=== PATIENT | male | born 1950 | race Caucasian/White ===

== ENCOUNTER 2016-10-15 07:11 | Emergency (ER) | payer MEDICARE, MEDICAID ==
[2016-10-15 07:15] VITALS: BP 175/94
[2016-10-15] MEDS ORDERED: Cyclobenzaprine TAB* 10 MG PO ONE (08:46)
[2016-10-15] MEDS ORDERED: Ketorolac INJ* 60 MG/2 ML VIAL IM ONE (08:46)
--- NOTE | 2016-10-15 09:08 | ED ---
Back Pain - HPI Summary HPI Summary: Patient presents with one day of acute on chronic back pain. He has a history of a bulging disk and yesterday he did something to "tweak" it. He can find a position of comfort when laying down but any movement from sitting to standing is excruciatingly painful, but once he is up and walking he feels better. He denies incontinence of urine and stool, no N/T, or difficulty ambulating. - History of Current Complaint Chief Complaint: EDBackInjuryPain Stated Complaint: LOWER BACK PAIN Time Seen by Provider: 10/15/16 08:33 Hx Obtained From: Patient Onset/Duration: Gradual Onset Onset/Duration: Started Days Ago - 1 Timing: Constant Back Pain Location: Is Discrete @ - low back Severity Initially: Moderate Severity Currently: Mild Pain Intensity: 2 Character: Sharp, Aching Aggravating Symptom(s): Movement Alleviating Symptom(s): Rest Associated Signs And Symptoms: Positive: Negative Related History: Previous Back Injury - Allergies/Home Medications Allergies/Adverse Reactions: Allergies Allergy/AdvReac Type Severity Reaction Status Date / Time No Known Allergies Allergy Verified 06/13/12 09:58 PMH/Surg Hx/FS Hx/Imm Hx Endocrine/Hematology History: Denies: Hx Diabetes Cardiovascular History: Denies: Hx Angina, Hx Coronary Artery Disease, Hx Hypercholesterolemia, Hx Hypertension, Hx Myocardial Infarction, Hx Pacemaker/ICD, Hx Valvular Heart Disease Respiratory History: Reports: Other Respiratory Problems/Disorders - sinus infection a coupe days a year, recent upper resp infection Denies: Hx Asthma, Hx Chronic Obstructive Pulmonary Disease (COPD) GI History: Reports: Other GI Disorders - needs his bowel meds in the am and suleman to stay regular otherwise diarrhea Musculoskeletal History: Reports: Hx Back Problems, Other Musculoskeletal History - degenerative disk, torn right bicep a couple months ago Sensory History: Reports: Hx Contacts or Glasses Denies: Hx Hearing Aid Opthamlomology History: Reports: Hx Contacts or Glasses Psychiatric History: Reports: Hx Depression, Hx Bipolar Disorder - dx in high school Denies: Hx Panic Disorder Infectious Disease History: No Infectious Disease History: Denies: Traveled Outside the [place] in Last 30 Days - Family History Known Family History: Positive: None - Social History Occupation: Unemployed Lives: With Family Alcohol Use: Occasionally Substance Use Type: Reports: None Smoking Status (MU): Never Smoked Tobacco Review of Systems Positive: Myalgia Negative: Weakness, Paresthesia, Numbness All Other Systems Reviewed And Are Negative: Yes Physical Exam Triage Information Reviewed: Yes Vital Signs On Initial Exam: Initial Vitals Temp Pulse Resp BP Pulse Ox 97.4 F 99 20 175/94 98 10/15/16 07:13 10/15/16 07:13 10/15/16 07:13 10/15/16 07:13 10/15/16 07:13 Vital Signs Reviewed: Yes Appearance: Positive: Well-Appearing, No Pain Distress, Well-Nourished Skin: Positive: Warm, Skin Color Reflects Adequate Perfusion, Dry, Soft Head/Face: Positive: Normal Head/Face Inspection Eyes: Positive: EOMI, SETH, Conjunctiva Clear ENT: Positive: Hearing grossly normal Neck: Positive: Supple, Nontender Respiratory/Lung Sounds: Positive: Breath Sounds Present Cardiovascular: Positive: RRR Musculoskeletal: Positive: Strength/ROM Intact, Pain @ - +bilateral SLR; TTP bilateral lumbar spine Neurological: Positive: Sensory/Motor Intact, Alert, Oriented to Person Place, Time, NV Bundle Intact Distally, Abnormal Gait Psychiatric: Positive: Affect/Mood Appropriate AVPU Assessment: Alert Diagnostics - Vital Signs Vital Signs Temp Pulse Resp BP Pulse Ox 10/15/16 07:15 97.4 F 94 20 175/94 98 10/15/16 07:13 97.4 F 99 20 175/94 98 - Laboratory Lab Statement: Any lab studies that have been ordered have been reviewed, and results considered in the medical decision making process. Back Pain Course/Dx - Diagnoses Differential Diagnosis/HQI/PQRI: Positive: Aneurysm, Arthritis, Cauda Equina Syndrome, Epidural Abscess, Herniated Disc, Strain, Sprain Provider Diagnoses: Acute exacerbation of chronic low back pain Discharge - Discharge Plan Condition: Stable Disposition: HOME Patient Education Materials: Back Pain (ED) Referrals: Stephane Solorio MD [Primary Care Provider] - Additional Instructions: Please use the muscle relaxer as needed. Begin using ibuprofen 600mg three times daily with meals tomorrow morning for the next 3-5 days to help decrease inflammation and pain. Follow-up with your primary care provider if your symptoms persist. Return to the emergency department if symptoms worsen.
== END 2016-10-15 09:22 | disposition home or self-care (01) ==
LOC: ED 07:11
DX: M54.5 Low back pain (principal); G89.29 Other chronic pain; M79.1 Myalgia
CPT/HCPCS: 96372; 99281; A9270-GY; J1885

== ENCOUNTER 2016-12-16 09:42 | Day surgery (SDC) | payer MEDICARE, MEDICAID ==
[~2016-12-16 09:42] MED LIST: Buffered Lidocaine 0.9% SYRIN* 5 ML/SYR SYRINGE INTRADERM ONE
[2016-12-16] MEDS ORDERED: ceFAZolin 2 GM PREMIX (*) 50 ML IVPB ONE (10:25)
[2016-12-16] MEDS ORDERED: Lidocaine 1.5% EPI 1:200,000* 30 ML SDV ONE (11:55)
[2016-12-16] MEDS ORDERED: Mineral Oil Sterile, TOPICAL* 25 ML BTL ONE (11:56)
[2016-12-16] MEDS ORDERED: fentaNYL* 50 MCG/ML 2 ML VIAL (100 MCG VIAL) ONE (12:10)
[2016-12-16] MEDS ORDERED: Midazolam* 1 MG/ML 5 ML VIAL (5 MG) ONE (12:10)
[2016-12-16 14:03] VITALS: BP 146/85
== END 2016-12-16 14:29 | disposition home or self-care (01) ==
LOC: OREAST 09:42
PROVIDERS: ATTEND Plastic Surgery
DX: C44.311 Basal cell carcinoma of skin of nose (principal); I10 Essential (primary) hypertension; F41.8 Other specified anxiety disorders; E78.00 Pure hypercholesterolemia, unspecified
CPT/HCPCS: A9270-GY; J0690; J2250; J3010

== ENCOUNTER → 2017-11-16 14:29 | Emergency (ER) | payer MEDICARE, MEDICAID ==
[2017-11-16 16:18] VITALS: BP 156/82
== END | disposition left against medical advice (07) ==
LOC: ED 14:29
DX: R10.9 Unspecified abdominal pain (principal); Z53.21 Procedure and treatment not carried out due to patient leaving prior to being seen by health care provider

== ENCOUNTER 2017-11-17 13:31 | Emergency (ER) | payer MEDICARE, MEDICAID ==
--- NOTE | 2017-11-17 15:05 | ED ---
Abdominal Pain/Male - HPI Summary HPI Summary: This is manav Herrera documenting for attending Dr. Dann M.D. Pt is a 66 y/o M w/ c/o uncomfortable feeling/abdominal pain onsetting six days ago. He notes pain was initially at the periumbilical area but reports it is currently at RLQ. On triage, pain is rated 4/10. Nothing is noted to aggravate/alleviate pain. He denies having tried to use OTC meds on triage. Discomfort is described as constant. He reports no bowel movement in the past two days and has been taking fiber supplements. Pt denies fever and chills but notes some nausea. - History of Current Complaint Chief Complaint: EDAbdPain Stated Complaint: ABD PAIN Time Seen by Provider: 11/17/17 14:43 Hx Obtained From: Patient Onset/Duration: Lasting Days - 6 days ago Timing: Constant Severity Currently: Mild Pain Intensity: 4 Pain Scale Used: 0-10 Numeric - 4/10 Location: Discrete At: RLQ - currently, Umbilical - at onset pain was at umbilical region Aggravating Factor(s): Nothing Alleviating Factor(s): Nothing Associated Signs And Symptoms: Positive: Nausea, Other - NEGATIVE: chills POSITIVE: constipation. Negative: Fever - Allergies/Home Medications Allergies/Adverse Reactions: Allergies Allergy/AdvReac Type Severity Reaction Status Date / Time No Known Allergies Allergy Verified 12/16/16 10:19 Home Medications: Home Medications Atorvastatin* [Lipitor 10 MG*] 10 mg PO DAILY 11/17/17 [History Confirmed ] Levothyroxine TAB* [Synthroid TAB*] 25 mcg PO DAILY 11/17/17 [History Confirmed 11/17/17] Venlafaxine EXT RELEASE CAP* [Effexor Xr CAP*] 112.5 mg PO DAILY 11/17/17 [ History Confirmed 11/17/17] buPROPion SR TAB* [Wellbutrin SR TAB*] 150 mg PO BID 11/17/17 [History Confirmed 11/17/17] lamoTRIgine TAB(*) [LaMICtal TAB(*)] 100 mg PO DAILY 11/17/17 [History Confirmed 11/17/17] PMH/Surg Hx/FS Hx/Imm Hx Endocrine/Hematology History: Reports: Hx Thyroid Disease - ON MEDICATION FOR Denies: Hx Diabetes Cardiovascular History: Denies: Hx Angina, Hx Coronary Artery Disease, Hx Hypercholesterolemia, Hx Hypertension, Hx Myocardial Infarction, Hx Pacemaker/ICD, Hx Valvular Heart Disease Respiratory History: Reports: Other Respiratory Problems/Disorders - sinus infection a coupe days a year, recent upper resp infection Denies: Hx Asthma, Hx Chronic Obstructive Pulmonary Disease (COPD) GI History: Reports: Other GI Disorders - GAS AND BLOATING - STATES DIET RELATED Musculoskeletal History: Reports: Hx Arthritis, Hx Back Problems, Other Musculoskeletal History - degenerative disk, torn right bicep Sensory History: Reports: Hx Cataracts, Hx Contacts or Glasses - READING GLASSES Denies: Hx Hearing Aid Opthamlomology History: Reports: Hx Cataracts, Hx Contacts or Glasses - READING GLASSES Psychiatric History: Reports: Hx Anxiety - ON MEDICATION FOR, Hx Depression - ON MEDICATION FOR, Hx Bipolar Disorder - dx in high school Denies: Hx Panic Disorder - Surgical History Surgery Procedure, Year, and Place: DENTAL SURGERY-WHILE IN HIS 20'S Hx Anesthesia Reactions: No Infectious Disease History: No Infectious Disease History: Denies: Traveled Outside the [place] in Last 30 Days - Family History Known Family History: Negative: Blood Disorder - Social History Alcohol Use: Occasionally Substance Use Type: Reports: None Smoking Status (MU): Never Smoked Tobacco Review of Systems Negative: Fever, Chills Positive: Abdominal Pain - at onset located at periumbilical region, in room noted at RLQ , Nausea, Other - no bowel movement in two days; constipation All Other Systems Reviewed And Are Negative: Yes Physical Exam - Summary Physical Exam Summary: GENERAL: Patient is a well developed and nourished male who is lying comfortable in the stretcher. Patient is not in any acute respiratory distress. HEAD AND FACE: Normocephalic EYES: PERRLA, EOMI x 2. EARS: Hearing grossly intact. MOUTH: Oropharynx within normal limits. NECK: Supple, trachea is midline, no adenopathy, no JVD, no carotid bruit. CHEST: Symmetric, no tenderness at palpation LUNGS: Clear to auscultation bilaterally. No wheezing or crackles. CVS: Regular rate and rhythm, S1 and S2 present, no murmurs or gallops appreciated. ABDOMEN: Soft. Tenderness in RLQ. Bowel sounds are normal. No abdominal abnormal pulsations. EXTREMITIES: Full ROM in all major joints, no edema, no cyanosis or clubbing. NEURO: Alert and oriented x 3. No acute neurological deficits. Speech is normal and follows commands. SKIN: Dry and warm Triage Information Reviewed: Yes Vital Signs On Initial Exam: Initial Vitals Temp Pulse Resp BP Pulse Ox 97.8 F 94 16 146/96 98 11/17/17 13:35 11/17/17 13:35 11/17/17 13:35 11/17/17 13:35 11/17/17 13:35 Vital Signs Reviewed: Yes Diagnostics - Vital Signs Vital Signs Temp Pulse Resp BP Pulse Ox 11/17/17 13:35 97.8 F 94 16 146/96 98 - Laboratory Result Diagrams: 11/17/17 16:09 11/17/17 16:09 Lab Statement: Any lab studies that have been ordered have been reviewed, and results considered in the medical decision making process. - CT abd/pel CT Interpretation: Positive (See Comments) CT Interpretation Completed By: Radiologist - #. No pathologic process of the alimentary tract evident. #. Symmetrically delayed nephrograms and pyelograms. Physiologic distention of the IVC without suggestion of low volume state. Correlate with renal function. #. 2.5 mm distal RIGHT ureteral stone without resulting hydronephrosis. Additional 4 mm stone at the RIGHT posterior aspect of the urinary bladder. #. Lumbar sacral spine degenerative spondylosis and facet joint osteoarthritis with resulting acquired central canal stenosis. This report was reviewed by ED physician. Abdominal Pain Fem Course/Dx - Course Assessment/Plan: Pt is a 66 y/o M w/ c/o uncomfortable feeling/abdominal pain onsetting six days ago. He notes pain was initially at the periumbilical area but reports it is currently at RLQ. On triage, pain is rated 4/10. Nothing is noted to aggravate/alleviate pain. He denies having tried to use OTC meds on triage. Discomfort is described as constant. He reports no bowel movement in the past two days and has been taking fiber supplements. Pt denies fever and chills but notes some nausea. Physical exam revealed RLQ tenderness. CT abd/pel was ordered with impressions above. Pt was diagnosed with kidney stones and discharge to home with instructions to follow up with urology in the next few days. - Diagnoses Provider Diagnoses: Kidney stones Discharge - Sign-Out/Discharge Documenting (check all that apply): Patient Departure - discharge - Discharge Plan Condition: Stable Disposition: HOME Prescriptions: Tamsulosin HCl [Flomax] 0.4 mg PO ONCE #30 cap.er.24h traMADol TAB* [Ultram*] 50 mg PO Q12H #15 tab MDD 2 Patient Education Materials: Kidney Stones (ED) Referrals: Stephane Solorio MD [Primary Care Provider] - 2 Days Additional Instructions: Follow up with [facility] in next couple of days. Return to ED for any new or worsening symptoms. - Billing Disposition and Condition Condition: STABLE Disposition: Home
[2017-11-17] MEDS ORDERED: Ketorolac INJ* 30 MG/ML 1 ML VIAL IV PUSH ONE (15:16)
[2017-11-17] MEDS ORDERED: Ondansetron INJ* 2 MG/ML VIAL IV ONE (15:17)
[2017-11-17 16:26] LABS: ABS Basophils 0.1 10^3/ul (0-0.2); ABS Eosinophils 0.2 10^3/ul (0-0.6); ABS Lymphocytes 1.3 10^3/ul (1.0-4.8); ABS Monocytes 0.6 10^3/ul (0-0.8); ABS Neutrophils 4.8 10^3/ul (1.5-7.7); ABS Nucleated RBC 0 10^3/ul; Eosinophil % 3.1 % (0-6); Hematocrit 43 % (42-52); Hemoglobin 14.4 g/dl (14.0-18.0); Lymphocyte % 17.9 % (25-47); Mean Corpuscular HGB Conc 34 g/dl (31-36); Mean Corpuscular Hemoglobin 30 pg (27-31); Mean Corpuscular Volume 89 fL (80-94); Mean Platelet Volume 7.5 um3 (7.4-10.4); Nucleated Red Blood Cells % 0.1; Platelet Count 246 10^3/ul (150-450); Red Cell Distribution Width 14 % (10.5-15)
[2017-11-17 16:40] LABS: EGFR Non-African American 55.6 (>60)
[2017-11-17] MEDS ORDERED: Iodixanol* (CONTRAST) 320 MG/ML 100 ML SDV IV ONE (16:53)
--- NOTE | 2017-11-17 17:21 | RAD ---
INDICATION: LEFT lower abdominal pain and discomfort for several weeks. No bowel movement for 6 days. COMPARISON: No relevant prior exams available on the [facility] PACS for comparison. TECHNIQUE: Multidetector CT images were obtained from the lung bases to the ischial tuberosities with 102 mL Visipaque 320 IV and oral contrast. Multiplanar reformation. REPORT: Minimal dependent atelectasis at the lung bases. Unremarkable liver, gallbladder, pancreas, spleen. Negative for CT abnormality of the upper GI, small bowel, or appendix. Moderate volume of stool present throughout the colon. Negative for significant distention of the rectum with stool. Moderate distention of the mid to distal sigmoid colon with stool. Negative for perienteric inflammatory change, ascites, hernias. Unremarkable adrenal glands. Symmetrically delayed nephrograms and pyelograms. 2.5 mm stone at the distal RIGHT ureter approximate 2 cm from the ureterovesicular junction without associated hydronephrosis. 4 mm dependent stone at the RIGHT margin of the urinary bladder. Unremarkable seminal vesicles and prostate. Negative for lymphadenopathy. Normal diameter abdominal aorta with minimal atherosclerotic plaque. Physiologic distention of the IVC. Multilevel degenerative spondylosis and facet joint osteoarthritis. Resulting acquired central canal stenosis most prominent at L4-L5 where it is severe. Negative for suspicious focal osseous lesions. IMPRESSION: #. No pathologic process of the alimentary tract evident. #. Symmetrically delayed nephrograms and pyelograms. Physiologic distention of the IVC without suggestion of low volume state. Correlate with renal function. #. 2.5 mm distal RIGHT ureteral stone without resulting hydronephrosis. Additional 4 mm stone at the RIGHT posterior aspect of the urinary bladder. #. Lumbar sacral spine degenerative spondylosis and facet joint osteoarthritis with resulting acquired central canal stenosis.
[2017-11-17 19:08] LABS: Urine Appearance Clear; Urine Blood 1+ (Negative); Urine Color Yellow; Urine Ketones 1+ (Negative); Urine Protein 1+(30 mg/dL) (Negative); Urine Red Blood Cell 1+(3-5/hpf) (Absent); Urine Specific Gravity > 1.060 (1.010-1.030); Urine Urobilinogen Positive (Negative); Urine White Blood Cell 1+(6-10/hpf) (Absent)
[2017-11-17 20:08] VITALS: BP 137/74
== END 2017-11-17 19:55 | disposition home or self-care (01) ==
LOC: ED 13:31
DX: N20.1 Calculus of ureter (principal); N21.0 Calculus in bladder; M47.817 Spondylosis without myelopathy or radiculopathy, lumbosacral region; E07.9 Disorder of thyroid, unspecified; F41.8 Other specified anxiety disorders; Z79.899 Other long term (current) drug therapy
CPT/HCPCS: 36415; 74177; 80053; 81003; 81015; 83605; 83690; 85025; 86140; 86703; 86706; 86803; 87086; 96374; 96375; 99283; J1885; J2405; Q9967

== ENCOUNTER 2017-12-07 09:10 | Day surgery (SDC) | payer MEDICARE, MEDICAID ==
--- NOTE | 2017-12-06 10:56 | HP ---
CC: Dr. Stephane Solorio * DATE OF ADMISSION: 12/07/2017. AGE: 66-year-old male. ADMITTING DIAGNOSES: 1. Calculi right ureter. 2. Right hydronephrosis. 3. Bladder calculus. PLANNED PROCEDURE: Cystoscopy, right ureteroscopy, possible laser and stent insertion, and removal of bladder calculus. SURGEON: Dr. Alvarado. HISTORY OF PRESENT ILLNESS: Levi Lopez is a 66-year-old gentleman who has originally been evaluated in the emergency room and subsequently in my office. An ultrasound in my office had revealed right hydronephrosis with what appeared to be multiple stones in the right distal ureter and an additional bladder calculus. He was given the option of trying to continue conservative management , but since it has been a while (had been in the emergency room in mid October) he would like to continue on with the procedure. PAST MEDICAL HISTORY: Significant for: 1. Depression. 2. Hypothyroidism. 3. High cholesterol. 4. History of superficial melanoma. PAST SURGICAL HISTORY: Significant for oral surgery. MEDICATIONS ON ADMISSION: 1. Dicyclomine 10 mg daily. 2. Lipitor 10 mg daily. 3. Bupropion 150 mg daily. 4. Lorazepam 0.5 mg prn daily. 5. Venlafaxine 75 mg daily. 6. Levothyroxine 25 mcg daily. 7. 50 mg prn. 8. Lamotrigine 100 mg daily. 9. 50 mg prn. 10. Cyclobenzaprine 5 mg daily. 11. Tramadol 50 mg prn. 12. Flomax 0.4 mg daily. 13. Meclizine 125 mg daily. ALLERGIES AND INTOLERANCES: No known drug allergies. FAMILY HISTORY: His sister has kidney stones. SMOKING HISTORY: He is a nonsmoker. REVIEW OF SYSTEMS: He denies any chest pain or shortness of breath. There is no history of diabetes mellitus or any other major systemic illness. PHYSICAL EXAMINATION GENERAL: Pleasant, middle-aged gentleman. VITAL SIGNS: Blood pressure 140/88, pulse 88 per minute and regular, temperature 96, oxygen saturation 98 percent on room air. CARDIOVASCULAR: Regular rate and rhythm. S1, S2. LUNGS: Clear bilaterally. ABDOMEN: Soft with mild right flank tenderness. IMPRESSION: [id number]-old gentleman with multiple right distal ureteral calculi and a bladder calculus. PLANNED PROCEDURE: Cystoscopy, right ureteroscopy, possible laser and stent insertion, and removal of bladder calculus. [id number]/[facility] #: [id number] [facility]
[~2017-12-07 09:10] MED LIST changes: +Gentamicin ADULT (*) 160 MG in NS 0.9% 100 ML* 100 ML IVPB ONE
[2017-12-07] MEDS ORDERED: cefTRIAXone(*) 2 GM ADDV.VIAL IVPB ONE (09:33)
[2017-12-07] MEDS ORDERED: Iohexol 180 (CONTRAST) 10 ML SDV IV ONE (10:39)
[2017-12-07] MEDS ORDERED: Chloroprocaine 2%* 20 ML VIAL ONE (10:46)
[2017-12-07] MEDS ORDERED: Midazolam* 1 MG/ML 2 ML VIAL (2 MG) ONE (10:46)
[2017-12-07] MEDS ORDERED: fentaNYL* 50 MCG/ML 2 ML VIAL (100 MCG VIAL) ONE (10:46)
[2017-12-07] MEDS ORDERED: Propofol* 10 MG/ML 20 ML BTL IV PUSH ONE (11:09)
[2017-12-07] MEDS ORDERED: Naloxone* 0.4 MG/ML 1 ML VIAL IV PRN (11:51)
[2017-12-07] MEDS ORDERED: Ketorolac INJ* 30 MG/ML 1 ML VIAL IV PRN (11:51)
[2017-12-07] MEDS ORDERED: fentaNYL* 50 MCG/ML 2 ML VIAL (100 MCG VIAL) IV PRN (11:51)
[2017-12-07] MEDS ORDERED: Acetaminophen TAB* 325 MG PO PRN (11:51)
[2017-12-07] MEDS ORDERED: Ketorolac INJ* 30 MG/ML 1 ML VIAL ONE (12:52)
--- NOTE | 2017-12-07 13:17 | RAD ---
INDICATION: Right ureteroscopy with laser lithotripsy COMPARISON: None FINDINGS: 4 seconds of fluoroscopy were provided for the urology of department. Fluoroscopic spot imaging of the abdomen were obtained for operative control and show right-sided ureteroscopy followed by a right ureteral stent placement in expected position . CPT II Codes: G9500 (fluoro time doc)
[2017-12-07 14:19] VITALS: BP 143/82
--- NOTE | 2017-12-07 23:25 | OP ---
CC: Dr. Solorio * DATE OF OPERATION: 12/07/17 - [facility] DATE OF : 54 SURGEON: Sixto Alvarado MD ANESTHESIOLOGIST: Dr. Santos. ANESTHESIA: Spinal. PRE-OP DIAGNOSES: 1. Right ureteral calculi. 2. Bladder calculi. POST-OP DIAGNOSES: 1. Right ureteral calculi. 2. Bladder calculi. 3. Bladder lesion. 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 OPERATIVE PROCEDURE: 1. Cystoscopy, right retrograde pyelogram, right ureteroscopy, laser lithotripsy, and right stent insertion. 2. Transurethral resection and fulguration of bladder lesion. 3. Fragmentation and removal of bladder calculi. COMPLICATIONS: None. POSTOPERATIVE CONDITION: Stable. STENT USED: 6-Filipino stent right ureter. INDICATIONS: Levi Lopez is a 66-year-old gentleman who was evaluated for right ureteral and bladder calculi. DESCRIPTION OF PROCEDURE: After induction of spinal anesthesia, the patient was placed in dorsal lithotomy position. Sequential compression devices were in place and functioning. Initial cystoscopy revealed a normal-appearing urethra and a mildly enlarged prostate. The bladder was examined. There were multiple bladder calculi which were all fairly small and these were easily fragmented and irrigated out. In the mucosa of the bladder above the right orifice there was an approximately 1.5 cm lesion with an appearance consistent with superficial low-grade transitional cell neoplasm. Using the biopsy forceps , this was excised and then the resectoscope was introduced to resect the base of the lesion. Next attention was directed to the right ureter. Retrograde pyelogram revealed fullness of the right collecting system and a 6-Filipino semirigid ureteroscope was introduced and advanced into the ureter. The distal most part of the ureter was fairly narrow and above this there were two calculi noted. Using a 550 micron holmium laser these were successfully broken up into multiple fragments and all of the sizable fragments were removed. A 6-Filipino stent was introduced and positioned under fluoroscopy with good proximal and distal positioning obtained. The patient tolerated the procedure satisfactorily and was transferred back to the recovery area in stable condition. [id number]/[facility] #: [id number] [facility]
== END 2017-12-07 15:01 | disposition home or self-care (01) ==
LOC: OR 09:10
PROVIDERS: ATTEND Urology
DX: N13.2 Hydronephrosis with renal and ureteral calculous obstruction (principal); N32.9 Bladder disorder, unspecified; N21.0 Calculus in bladder; E03.9 Hypothyroidism, unspecified; E78.00 Pure hypercholesterolemia, unspecified; Z85.820 Personal history of malignant melanoma of skin
CPT/HCPCS: 36415; 74420; 82365; 86803; 88300; 88305; C1876; J0696; J1580; J1885; J2250; J2400; J2704; J3010

== ENCOUNTER 2018-10-23 12:57 | Day surgery (SDC) | payer MEDICARE, MEDICAID ==
[~2018-10-23 12:57] MED LIST changes: +Acetaminophen TAB* 325 MG PO PRN; -Buffered Lidocaine 0.9% SYRIN* 5 ML/SYR SYRINGE INTRADERM ONE; +Cyclopentolate 1% OPTH.SOL* 2 ML BTL ONE; -Gentamicin ADULT (*) 160 MG in NS 0.9% 100 ML* 100 ML IVPB ONE; +Ketorolac 0.5% OPHTH (NF) 0.5 % 5 ML BTL ONE; +Lidocaine 1%** 5 ML VIAL ONE; +Neomycin/Polymy/Dex OPHTH.OIN* 3.5 GM ONE; +Phenylephrine OPHTH SOL 2.5%* 2 ML ONE; +Povidone Iodine 5% OPTH* 30 ML BTL ONE; +Tetracaine 0.5% OPTH.SOL 4 ML* 1 DROP BTL ONE; +Tropicamide 1% OPTH.SOL* BTL ONE; +acetaZOLAMIDE TAB* 250 MG ONE
[2018-10-23] MEDS ORDERED: Midazolam* 1 MG/ML 2 ML VIAL (2 MG) ONE (14:08)
[2018-10-23] MEDS ORDERED: fentaNYL* 50 MCG/ML 2 ML VIAL (100 MCG VIAL) ONE (14:08)
[2018-10-23] MEDS ORDERED: Glycopyrrolate IV* 0.2 MG/ML 1 ML VIAL ONE (14:14)
[2018-10-23 15:25] VITALS: BP 135/68
--- NOTE | 2018-10-23 21:28 | OP ---
DATE OF OPERATION: 10/23/18 - [facility] DATE OF : 54 SURGEON: Shravan Cantu MD ANESTHESIA: Monitored anesthesia care. PREOPERATIVE DIAGNOSIS: Cataract, left eye. POSTOPERATIVE DIAGNOSIS: Cataract, left eye. OPERATIVE PROCEDURE: Extracapsular cataract extraction of the left eye with intraocular lens implant. IMPLANT: SN60WF 19.0 diopter lens to the left eye. COMPLICATIONS: None. DESCRIPTION OF PROCEDURE: The patient was given phenylephrine 2.5 % and cyclopentolate 1% eye drops to the operative eye in the preoperative area. The patient was taken to the operating room where a time-out was taken to identify the correct patient, site, and side of surgery. The patient's left eye was prepped and draped in the usual sterile fashion with 5% Betadine. A second time- out was taken to verify the correct patient, side, and site of surgery, as well as the correct lens implant. A lid speculum was placed to the left eye. A 1mm paracentesis blade was used to make a clear corneal incision. Preservative-free 1% lidocaine was injected into the anterior chamber. DisCoVisc was then injected into the anterior chamber. A 2.75 mm keratome blade was used to make a triplanar incision. A cystotome initiated a capsulorrhexis, which was completed with Utrata forceps in a continuous and curvilinear manner. Hydrodissection of the lens was performed with BSS on a cannula. The lens could be spun in a capsular bag. The phacoemulsification handpiece was used with a divide-and- conquer technique to remove the nucleus. The I/A handpiece then removed the residual cortical lens material. DisCoVisc was injected to inflate the capsular bag. The planned SN60WF 19.0 Diopter lens was injected into the capsular bag. The residual DisCoVisc was removed from the eye with the I/A handpiece. The corneal incisions were hydrated and no leaks occurred at physiologic pressure around 20 mmHg per palpation. The lid speculum was removed and drapes were removed. Maxitrol ointment was placed to the surface of the operative eye. An adhesive patch and shield was then placed on the operative eye. The patient was taken to the postoperative area in stable condition. [id number]/[facility] #: [id number] [facility]
== END 2018-10-23 16:06 | disposition home or self-care (01) ==
LOC: OREAST 12:57
PROVIDERS: ATTEND Student in an Organized Health Care Education/Training Program
DX: H25.812 Combined forms of age-related cataract, left eye (principal); E78.00 Pure hypercholesterolemia, unspecified; E05.90 Thyrotoxicosis, unspecified without thyrotoxic crisis or storm; F41.8 Other specified anxiety disorders; E78.5 Hyperlipidemia, unspecified
CPT/HCPCS: A9270-GY; J2250; J3010; V2632

== ENCOUNTER 2018-10-30 07:04 | Day surgery (SDC) | payer MEDICARE, MEDICAID ==
[~2018-10-30 07:04] MED LIST changes: -Cyclopentolate 1% OPTH.SOL* 2 ML BTL ONE; -Ketorolac 0.5% OPHTH (NF) 0.5 % 5 ML BTL ONE; -Lidocaine 1%** 5 ML VIAL ONE; -Neomycin/Polymy/Dex OPHTH.OIN* 3.5 GM ONE; -Phenylephrine OPHTH SOL 2.5%* 2 ML ONE; -Povidone Iodine 5% OPTH* 30 ML BTL ONE; -Tetracaine 0.5% OPTH.SOL 4 ML* 1 DROP BTL ONE; -Tropicamide 1% OPTH.SOL* BTL ONE; -acetaZOLAMIDE TAB* 250 MG ONE
[2018-10-30] MEDS ORDERED: fentaNYL* 50 MCG/ML 2 ML VIAL (100 MCG VIAL) ONE (07:15)
[2018-10-30] MEDS ORDERED: Midazolam* 1 MG/ML 5 ML VIAL (5 MG) ONE (07:15)
[2018-10-30 08:42] VITALS: BP 138/82
--- NOTE | 2018-10-30 09:07 | OP ---
DATE OF OPERATION: 10/30/18 - [facility] DATE OF : 54 SURGEON: Shravan Cantu MD ANESTHESIA: Monitored anesthesia care. PREOPERATIVE DIAGNOSIS: Cataract, right eye. POSTOPERATIVE DIAGNOSIS: Cataract, right eye. OPERATIVE PROCEDURE: Extracapsular cataract extraction of the right eye with intraocular lens implant. IMPLANT: SN60WF 20.0 diopter lens to the right eye. COMPLICATIONS: None. DESCRIPTION OF PROCEDURE: The patient was given phenylephrine 2.5 % and cyclopentolate 1% eye drops to the operative eye in the preoperative area. The patient was taken to the operating room where a time-out was taken to identify the correct patient, site, and side of surgery. The patient's right eye was prepped and draped in the usual sterile fashion with 5% Betadine. A second time- out was taken to verify the correct patient, side, and site of surgery, as well as the correct lens implant. A lid speculum was placed to the right eye. A 1mm paracentesis blade was used to make a clear corneal incision. Preservative-free 1% lidocaine was injected into the anterior chamber. DisCoVisc was then injected into the anterior chamber. A 2.75 mm keratome blade was used to make a triplanar incision. A cystotome initiated a capsulorrhexis, which was completed with Utrata forceps in a continuous and curvilinear manner. Hydrodissection of the lens was performed with BSS on a cannula. The lens could be spun in a capsular bag. The phacoemulsification handpiece was used with a divide-and- conquer technique to remove the nucleus. The I/A handpiece then removed the residual cortical lens material. DisCoVisc was injected to inflate the capsular bag. The planned SN60WF 20.0 diopter lens was injected into the capsular bag. The residual DisCoVisc was removed from the eye with the I/A handpiece. The corneal incisions were hydrated and no leaks occurred at physiologic pressure around 20 mmHg per palpation. The lid speculum was removed and drapes were removed. Maxitrol ointment was placed to the surface of the operative eye. An adhesive patch and shield was then placed on the operative eye. The patient was taken to the postoperative area in stable condition. [id number]/[facility] #: [id number] [facility]
[2018-10-30] MEDS ORDERED: Cyclopentolate 1% OPTH.SOL* 2 ML BTL ONE (13:25)
[2018-10-30] MEDS ORDERED: Ketorolac 0.5% OPHTH (NF) 0.5 % 5 ML BTL ONE (13:25)
[2018-10-30] MEDS ORDERED: Neomycin/Polymy/Dex OPHTH.OIN* 3.5 GM ONE (13:25)
[2018-10-30] MEDS ORDERED: acetaZOLAMIDE TAB* 250 MG ONE (13:25)
[2018-10-30] MEDS ORDERED: Phenylephrine OPHTH SOL 2.5%* 2 ML ONE (13:25)
[2018-10-30] MEDS ORDERED: Lidocaine 1% MPF ** 5 ML VIAL ONE (13:25)
[2018-10-30] MEDS ORDERED: Tetracaine 0.5% OPTH.SOL 4 ML* 1 DROP BTL ONE (13:25)
[2018-10-30] MEDS ORDERED: Povidone Iodine 5% OPTH* 30 ML BTL ONE (13:25)
[2018-10-30] MEDS ORDERED: Tropicamide 1% OPTH.SOL* BTL ONE (13:25)
== END 2018-10-30 09:43 | disposition home or self-care (01) ==
LOC: OREAST 07:04
PROVIDERS: ATTEND Student in an Organized Health Care Education/Training Program
DX: H25.811 Combined forms of age-related cataract, right eye (principal); E78.00 Pure hypercholesterolemia, unspecified; F41.8 Other specified anxiety disorders; E03.9 Hypothyroidism, unspecified
CPT/HCPCS: A9270-GY; J2250; J3010; V2632

== ENCOUNTER 2019-02-21 12:04 | Emergency (ER) | payer MEDICARE, MEDICAID ==
[2019-02-21 12:30] LABS: ABS Basophils 0.1 10^3/ul (0-0.2); ABS Eosinophils 0.2 10^3/ul (0-0.6); ABS Lymphocytes 1.4 10^3/ul (1.0-4.8); ABS Monocytes 0.5 10^3/ul (0-0.8); ABS Neutrophils 4.4 10^3/ul (1.5-7.7); Hematocrit 45 % (42-52); Hemoglobin 15.3 g/dL (14.0-18.0); Lymphocyte % 21.6 %; Mean Corpuscular HGB Conc 34 g/dL (31-36); Mean Corpuscular Hemoglobin 30 pg (27-31); Mean Corpuscular Volume 89 fL (80-94); Mean Platelet Volume 7.4 fL (7.4-10.4); Nucleated Red Blood Cells % 0.1; Platelet Count 271 10^3/uL (150-450); Red Blood Count 5.09 10^6 /uL (4.18-5.48); Red Cell Distribution Width 14 % (10-15); White Blood Count 6.7 10^3/uL (3.5-10.8)
[2019-02-21 12:37] LABS: INR 0.99 (0.82-1.09)
[2019-02-21 12:53] LABS: Albumin 4.4 g/dL (3.2-5.2); Albumin/Globulin Ratio 1.7 (1-3); BUN/Creatinine Ratio 9.8 (8-20); Calcium 9.6 mg/dL (8.6-10.3); EGFR African American 79.4 (>60); EGFR Non-African American 65.6 (>60); Globulin 2.6 g/dL (2-4); Potassium 4.4 mmol/L (3.5-5.0); Total Bilirubin 0.4 mg/dL (0.2-1.0)
[2019-02-21 16:14] VITALS: BP 155/96
--- NOTE | 2019-02-23 06:38 | ED ---
HPI Chest Pain - HPI Summary HPI Summary: This patient is a 68-year-old otherwise healthy male presenting to the ED with left-sided rib pain radiating to the chest. States has been present x 1 month and has remained intermittent. Worse with palpation, however denies any other current modifying factors. Denies any shortness of breath. Denies any pain to the back or to the neck. Denies any abdominal pain, nausea, vomiting, diarrhea , constipation, urinary symptoms. Denies any weakness. Patient has no cardiac history. He admits he has this tenderness to the L ribs every now and then, less than once a year, but this is the longest it has lasted. He states he is here to make sure his heart is not involved. Takes no medications, no anticoagulation. - History of Current Complaint Chief Complaint: EDChestPainROMI Time Seen by Provider: 02/21/19 13:52 Hx Obtained From: Patient Onset/Duration: Started Hours Ago Timing: Constant Initial Severity: Moderate Current Severity: Moderate Pain Intensity: 0 Pain Scale Used: 0-10 Numeric Chest Pain Radiates: No Aggravating Factor(s): Movement Alleviating Factor(s): Nothing Associated Signs and Symptoms: Positive: Negative - Allergy/Home Medications Allergies/Adverse Reactions: Allergies Allergy/AdvReac Type Severity Reaction Status Date / Time No Known Allergies Allergy Verified 02/21/19 13:51 PMH/Surg Hx/FS Hx/Imm Hx Previously Healthy: Yes Endocrine/Hematology History: Reports: Hx Thyroid Disease - ON MEDICATION FOR Denies: Hx Diabetes Cardiovascular History: Reports: Other Cardiovascular Problems/Disorders - cholesterol Denies: Hx Angina, Hx Coronary Artery Disease, Hx Hypercholesterolemia, Hx Hypertension, Hx Myocardial Infarction, Hx Pacemaker/ICD, Hx Valvular Heart Disease Respiratory History: Reports: Other Respiratory Problems/Disorders - occasional sinus infection a couple days a year depending on weather Denies: Hx Asthma, Hx Chronic Obstructive Pulmonary Disease (COPD) GI History: Reports: Other GI Disorders - OCCASSIONAL GAS AND BLOATING History: Reports: Hx Kidney Stones, Other Problems/Disorders - RIGHT URETERAL CALCULUS BLADDER CALCULUS Denies: Hx Renal Disease Musculoskeletal History: Reports: Hx Arthritis - BILATERAL fingers, Hx Back Problems, Other Musculoskeletal History - degenerative disk, torn right bicep healed, hx of gout- none recently Sensory History: Reports: Hx Cataracts - bilateral, Hx Contacts or Glasses - READING GLASSES Denies: Hx Hearing Aid Opthamlomology History: Reports: Hx Cataracts - bilateral, Hx Contacts or Glasses - READING GLASSES Neurological History: Reports: Other Neuro Impairments/Disorders - DIZZINESS OCCASIONAL IF STAND TOO QUICKLY Psychiatric History: Reports: Hx Anxiety - ON MEDICATION FOR, Hx Depression - ON MEDICATION FOR, Hx Bipolar Disorder - dx in high school Denies: Hx Panic Disorder - Cancer History Hx Chemotherapy: No - Surgical History Surgery Procedure, Year, and Place: DENTAL SURGERY-WHILE IN HIS 20'S. 2017 [facility] REMOVED X 2, OFFICE AND [place] Hx Anesthesia Reactions: No - Immunization History Hx Pertussis Vaccination: No Immunizations Up to Date: Yes Infectious Disease History: No Infectious Disease History: Denies: Traveled Outside the [place] in Last 30 Days - Family History Known Family History: Positive: None Negative: Blood Disorder - Social History Occupation: Unemployed Lives: Alone Alcohol Use: Occasionally Hx Substance Use: No Substance Use Type: Reports: None Smoking Status (MU): Never Smoked Tobacco Review of Systems Negative: Fever, Chills, Fatigue, Skin Diaphoresis Negative: Palpitations, Chest Pain Negative: Shortness Of Breath, Cough Genitourinary: Negative Positive: no symptoms reported, see HPI Musculoskeletal: Negative Skin: Negative All Other Systems Reviewed And Are Negative: Yes Physical Exam Triage Information Reviewed: Yes Vital Signs On Initial Exam: Initial Vitals Temp Pulse Resp BP Pulse Ox 97.5 F 89 16 152/85 99 02/21/19 12:15 02/21/19 12:15 02/21/19 12:15 02/21/19 12:15 02/21/19 12:15 Vital Signs Reviewed: Yes Appearance: Positive: Well-Appearing, Well-Nourished Skin: Positive: Warm, Skin Color Reflects Adequate Perfusion Head/Face: Positive: Normal Head/Face Inspection Eyes: Positive: EOMI, SETH, Conjunctiva Clear Neck: Positive: Supple, No Lymphadenopathy Respiratory/Lung Sounds: Positive: Clear to Auscultation, Breath Sounds Present Cardiovascular: Positive: RRR, Pulses are Symmetrical in both Upper and Lower Extremities Musculoskeletal: Positive: Pain @ - left ribs Neurological: Positive: Speech Normal Psychiatric: Positive: Normal, Affect/Mood Appropriate Procedures - Sedation Patient Received Moderate/Deep Sedation with Procedure: No Diagnostics - Vital Signs Vital Signs Temp Pulse Resp BP Pulse Ox 02/21/19 16:12 98.3 F 72 20 155/96 95 02/21/19 16:00 82 21 96 02/21/19 15:38 77 19 136/82 96 02/21/19 15:08 76 18 140/85 95 02/21/19 15:00 85 15 95 02/21/19 14:38 78 18 141/81 94 02/21/19 14:08 76 20 146/87 94 02/21/19 14:00 77 20 94 02/21/19 13:39 75 11 94 02/21/19 13:37 70 151/92 95 02/21/19 12:15 97.5 F 89 16 152/85 99 - Laboratory Lab Results: Lab Results 02/21/19 02/21/19 02/21/19 Range/Units 12:19 12:19 12:19 WBC 6.7 (3.5-10.8) 10^3/uL RBC 5.09 (4.18-5.48) 10^6 /uL Hgb 15.3 (14.0-18.0) g/dL Hct 45 (42-52) % MCV 89 (80-94) fL MCH 30 (27-31) pg MCHC 34 (31-36) g/dL RDW 14 (10-15) % Plt Count 271 (150-450) 10^3/uL MPV 7.4 (7.4-10.4) fL Neut % (Auto) 66.4 % Lymph % (Auto) 21.6 % Morrill % (Auto) 7.8 % Eos % (Auto) 3.0 % Baso % (Auto) 1.2 % Absolute Neuts (auto) 4.4 (1.5-7.7) 10^3/ul Absolute Lymphs (auto) 1.4 (1.0-4.8) 10^3/ul Absolute Monos (auto) 0.5 (0-0.8) 10^3/ul Absolute Eos (auto) 0.2 (0-0.6) 10^3/ul Absolute Basos (auto) 0.1 (0-0.2) 10^3/ul Absolute Nucleated RBC 0.0 10^3/ul Nucleated RBC % 0.1 INR (Anticoag Therapy) 0.99 (0.82-1.09) Sodium 139 (135-145) mmol/L Potassium 4.4 (3.5-5.0) mmol/L Chloride 106 (101-111) mmol/L Carbon Dioxide 28 (22-32) mmol/L Anion Gap 5 (2-11) mmol/L BUN 11 (6-24) mg/dL Creatinine 1.12 (0.67-1.17) mg/dL Est GFR ( Amer) 79.4 (>60) Est GFR (Non-Af Amer) 65.6 (>60) BUN/Creatinine Ratio 9.8 (8-20) Glucose 102 H (70-100) mg/dL Calcium 9.6 (8.6-10.3) mg/dL Total Bilirubin 0.40 (0.2-1.0) mg/dL AST 17 (13-39) U/L ALT 16 (7-52) U/L Alkaline Phosphatase 97 (34-104) U/L Troponin I 0.00 (<0.04) ng/mL Total Protein 7.0 (6.4-8.9) g/dL Albumin 4.4 (3.2-5.2) g/dL Globulin 2.6 (2-4) g/dL Albumin/Globulin Ratio 1.7 (1-3) 02/21/19 Range/Units 15:03 WBC (3.5-10.8) 10^3/uL RBC (4.18-5.48) 10^6 /uL Hgb (14.0-18.0) g/dL Hct (42-52) % MCV (80-94) fL MCH (27-31) pg MCHC (31-36) g/dL RDW (10-15) % Plt Count (150-450) 10^3/uL MPV (7.4-10.4) fL Neut % (Auto) % Lymph % (Auto) % Morrill % (Auto) % Eos % (Auto) % Baso % (Auto) % Absolute Neuts (auto) (1.5-7.7) 10^3/ul Absolute Lymphs (auto) (1.0-4.8) 10^3/ul Absolute Monos (auto) (0-0.8) 10^3/ul Absolute Eos (auto) (0-0.6) 10^3/ul Absolute Basos (auto) (0-0.2) 10^3/ul Absolute Nucleated RBC 10^3/ul Nucleated RBC % INR (Anticoag Therapy) (0.82-1.09) Sodium (135-145) mmol/L Potassium (3.5-5.0) mmol/L Chloride (101-111) mmol/L Carbon Dioxide (22-32) mmol/L Anion Gap (2-11) mmol/L BUN (6-24) mg/dL Creatinine (0.67-1.17) mg/dL Est GFR ( Amer) (>60) Est GFR (Non-Af Amer) (>60) BUN/Creatinine Ratio (8-20) Glucose (70-100) mg/dL Calcium (8.6-10.3) mg/dL Total Bilirubin (0.2-1.0) mg/dL AST (13-39) U/L ALT (7-52) U/L Alkaline Phosphatase (34-104) U/L Troponin I 0.00 (<0.04) ng/mL Total Protein (6.4-8.9) g/dL Albumin (3.2-5.2) g/dL Globulin (2-4) g/dL Albumin/Globulin Ratio (1-3) Result Diagrams: 02/21/19 12:19 02/21/19 12:19 Lab Statement: Any lab studies that have been ordered have been reviewed, and results considered in the medical decision making process. Chest Pain Course/Dx - Course Course Of Treatment: During his course treatment, the patient's evaluated for left-sided rib pain. He does admit he has had this pain in the past. Currently it has been present for [place] one month, has been intermittent. Denies any associated shortness of breath or chest pain otherwise. Denies any difficulty with swallowing, back pain. He does admit to left-sided rib injury where he has fractured ribs approximately 30 years ago and states he has had intermittent pain since that time. He states as the pain has been present has [place] one month, he wanted to assure this was not his heart. Labs obtained which are all unremarkable including 2 serial troponins of 0.00. EKG obtained which is a normal sinus rhythm. HEART SCORE = 0. LOW RISK. Physical exam reveals tenderness to the left ribs, however this is mild. He states it is worse with stretching upward or outward with his arm. Patient is stable, nondiaphoretic. He will be dc's with [facility] injury, but encouraged to f/u with PCP. HEART SCORE = 2. LOW RISK. - Chest Pain Differential Diagnosis/HQI/PQRI: Angina, Chest Wall - Diagnoses Provider Diagnoses: Left-sided chest wall pain Discharge ED - Sign-Out/Discharge Documenting (check all that apply): Patient Departure - Discharge Plan Condition: Stable Disposition: HOME Prescriptions: traMADol TAB* [Ultram*] 50 mg PO Q8H PRN #16 tab MDD 3 PRN Reason: Pain Patient Education Materials: Muscle Strain (ED) Referrals: Stephane Solorio MD [Primary Care Provider] - Additional Instructions: Ibuprofen 600mg three times daily for pain For pain not well controlled, please take tramadol 50mg three times daily Use moist heat to the area Gentle stretches may help Follow up with Dr. Solorio If you develop worsening symptoms, return to the ED It was a pleasure taking care of you today - Billing Disposition and Condition Condition: STABLE Disposition: Home - Attestation Statements Provider Attestation: I was available for consultation for this patient. I did not evaluate the patient or participate in any medical decision making or disposition decisions unless I am specifically named in the chart as having consulted on the patient. If I have consulted on the patient, please see my own ED note on the patient encounter. Evens Mcgee MD
== END 2019-02-21 16:12 | disposition home or self-care (01) ==
LOC: ED 12:04
DX: R07.89 Other chest pain (principal); E03.9 Hypothyroidism, unspecified; E78.00 Pure hypercholesterolemia, unspecified; F41.9 Anxiety disorder, unspecified; F32.9 Major depressive disorder, single episode, unspecified; Z85.820 Personal history of malignant melanoma of skin; Z79.890 Hormone replacement therapy; Z79.899 Other long term (current) drug therapy
CPT/HCPCS: 36415; 80053; 84484; 85025; 85610; 93005; 99282